=== PATIENT | female | born 1975 | race Two or more races ===

== ENCOUNTER 2021-01-25 06:37 | Emergency (ER) | payer OTHER ==
[~2021-01-25] VITALS: Ht 172.7 cm; Wt 77.3 kg
[2021-01-25] MEDS ORDERED: ACETAMINOPHEN 500 MG TABLET PO ONE (07:15)
[2021-01-25 07:31] LABS: GLUCOSE,POINT OF CARE 108 MG/DL (70-110)
[2021-01-25 08:15] VITALS: BP 121/79
== END 2021-01-25 08:45 | disposition home or self-care (01) ==
LOC: EMS 06:39
DX: G44.209 Tension-type headache, unspecified, not intractable (principal); I10 Essential (primary) hypertension; E11.9 Type 2 diabetes mellitus without complications
CPT/HCPCS: 82962; 99283